=== PATIENT | male | born 2000 ===

== ENCOUNTER 2025-08-08 06:00 | Emergency (ER) | payer SELFPAY ==
[2025-08-08 06:20] VITALS: BP 135/83; PULSE 71; RESP 20; TEMP 35.3
--- NOTE | 2025-08-08 06:33 | ED.OVERDOSE ---
HPI - Overdose General Chief Complaint: Overdose <Manjeet Gandhi MD - Last Filed: 08/08/25 06:41> Stated Complaint: overdose <Manjeet Gandhi MD - Last Filed: 08/08/25 06:41> Time Seen by Provider: 08/08/25 06:27 <Manjeet Gandhi MD - Last Filed: 08/08/25 06:41> Source: patient and EMS <Manjeet Gandhi MD - Last Filed: 08/08/25 06:41> Mode of arrival: EMS <Manjeet Gandhi MD - Last Filed: 08/08/25 06:41> Limitations: clinical condition <Manjeet Gandhi MD - Last Filed: 08/08/25 06:41> History of Present Illness HPI Narrative: This is a 24-year-old male that was found outdoors in the snow apparently by police without his pants was not responding appropriately and received Narcan and subsequently EMS was called to the scene and brought to our facility. Patient is awake alert was somewhat confused but knows the his location knows the date. The patient is shivering from cold otherwise is currently on cooperative with medical care stating an ?give me a second. Currently denies any chest pain or shortness of breath the patient has no nausea vomiting no abdominal pain. EMS of vitals prior to arrival temperature was 97.2? blood pressure 139/77. Patient with mild cough with no shortness of breath. 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 <Manjeet Gandhi MD - Last Filed: 08/08/25 06:41> MD complaint: intentional overdose <Manjeet Gandhi MD - Last Filed: 08/08/25 06:41> Onset (ago): hour(s) <Manjeet Gandhi MD - Last Filed: 08/08/25 06:41> Intent: unknown <Manjeet Gandhi MD - Last Filed: 08/08/25 06:41> Associated symptoms: paranoia <Manjeet Gandhi MD - Last Filed: 08/08/25 06:41> Related Data Home Medications: Home Medications ?Medication ?Instructions ?Recorded ?Confirmed ?Last Taken ?Type Unable to Obtain Home Medications 08/08/25 08/08/25 Unknown History <Manjeet Gandhi MD - Last Filed: 08/08/25 06:41> Allergies/Adverse Reactions: Allergies Allergy/AdvReac Type Severity Reaction Status Date / Time Penicillins Allergy Unknown Unknown Verified 08/08/25 06:27 <Manjeet Gandhi MD - Last Filed: 08/08/25 06:41> Review of Systems Review of Systems: All systems reviewed & are unremarkable except as noted in HPI and below <Manjeet Gandhi MD - Last Filed: 08/08/25 06:41> PMFSH Social History Social History: Social History Substance use type: unknown <Manjeet Gandhi MD - Last Filed: 08/08/25 06:41> Exam Const: General: no acute distress <Manjeet Gandhi MD - Last Filed: 08/08/25 06:41> Nutritional Appearance: well nourished <Manjeet Gandhi MD - Last Filed: 08/08/25 06:41> Limitations: altered mental status <Manjeet Gandhi MD - Last Filed: 08/08/25 06:41> HENMT: Head: normal to inspection <Manjeet Gandhi MD - Last Filed: 08/08/25 06:41> Eyes: Pupils: Equal, round and reactive pupils present <Manjeet Gandhi MD - Last Filed: 08/08/25 06:41> Neck: Neck: normal visual inspection <Manjeet Gandhi MD - Last Filed: 08/08/25 06:41> Chest: Chest palpation & inspection: normal inspection of the chest <Manjeet Gandhi MD - Last Filed: 08/08/25 06:41> Resp: Effort & Inspection: normal respiratory effort <Manjeet Gandhi MD - Last Filed: 08/08/25 06:41> Auscultation: clear to auscultation bilaterally <Manjeet Gandhi MD - Last Filed: 08/08/25 06:41> Cardio: Rate: regular rate <MD Meri Cao Last Filed: 08/08/25 06:41> Rhythm: regular rhythm <Manjeet Gandhi MD - Last Filed: 08/08/25 06:41> GI: GI Palp: Yes Soft to palpation <MD Meri Cao Last Filed: 08/08/25 06:41> Auscultation: normal bowel sounds <MD Meri Cao Last Filed: 08/08/25 06:41> : General: Yes bladder normal to palpation <Manjeet Gandhi MD - Last Filed: 08/08/25 06:41> Skin: Other: Cold extremities <Manjeet Gandhi MD - Last Filed: 08/08/25 06:41> Neuro: General: moves all extremities, no meningeal signs and no focal motor deficits <Manjeet Gandhi MD - Last Filed: 08/08/25 06:41> Speech: normal speech <MD Meri Cao Last Filed: 08/08/25 06:41> Extrem: Other: Cold extremities <MD Meri Cao Last Filed: 08/08/25 06:41> Psych: Affect: Anxious affect present <MD Meri Coa Last Filed: 08/08/25 06:41> Course Course Emergency Course: Medical decision making narrative: The patient was evaluated by myself in the emergency department. History obtained from EMS and patient and physical exam performed witnessed by a nurse and tech and EMS were at the bedside. <Manjeet Gandhi MD - Last Filed: 08/08/25 06:41> Vital Signs Vital signs: Vital Signs Temperature 35.3 C L 08/08/25 06:20 Pulse Rate 71 08/08/25 06:20 Respiratory Rate 20 08/08/25 06:20 Blood Pressure 135/83 08/08/25 06:20 Temperature 35.3 C L 08/08/25 06:20 Pulse Rate 71 08/08/25 06:20 Respiratory Rate 20 08/08/25 06:20 Blood Pressure 135/83 08/08/25 06:20 <MD Meri Cao Last Filed: 08/08/25 06:41> Vital Signs Temperature 35.3 C L 08/08/25 06:20 Pulse Rate 71 08/08/25 06:20 Respiratory Rate 20 08/08/25 06:20 Blood Pressure 135/83 08/08/25 06:20 Temperature 35.3 C L 08/08/25 06:20 Pulse Rate 71 08/08/25 06:20 Respiratory Rate 20 08/08/25 06:20 Blood Pressure 135/83 08/08/25 06:20 <Jose Okeefe MD - Last Filed: 08/08/25 08:25> [facility] Narrative Medical decision making narrative: I took over care of this patient at shift change at 7:00 a.m. and patient kept pawning off discussions and wanted to just take rest. Patient has been polite and without acute episodes or events of psychiatry. He is AAO x4. No suicide ideation. No homicide ideation. He still does not want any laboratory or studies done at this time. He said he just wants to stay in doors and sleep today. I discussed that we and not a long term and unable to house him all day especially if he does not want to do any medical treatment. I discussed AMA at this time with the patient and he understands that there could be life-threatening or abnormal laboratory studies that could be dangerous from him being out in the cold but at this time he is up walking around talking normally and being polite and AAO x4. No suicide thoughts. We cannot hold him against his will and at this time he did not want any medical care. Patient does not have any psychosis at this time or active mental illness or medical illness that I can tell at bedside currently with normal vital signs as well to help make that decision and he does appear to have the decision making capacity ability to say AMA. I offered the patient food and drinks but he has declined. We are going to get him some warm clothes to make sure that he does not freeze outside. He was going to be walking from here to his town [place] so we will make sure that he has warm clothes. <Jose Okeefe MD - Last Filed: 08/08/25 08:25> Differential Diagnosis Differential Diagnosis: overdose, hypothermia <Jose Okeefe MD - Last Filed: 08/08/25 08:25> Critical Care Time Critical Care Time Critical Care Time: No <Manjeet Gandhi MD - Last Filed: 08/08/25 06:41> Discharge Plan Discharge Clinical Impression: Drug overdose Qualifiers: Encounter type: initial encounter Injury intent: accidental or unintentional Qualified Code(s): T50.901A - Poisoning by unspecified drugs, medicaments and biological substances, accidental (unintentional), initial encounter <Manjeet Gandhi MD - Last Filed: 08/08/25 06:41> Patient Disposition: Left Against Medical Advice <Manjeet Gandhi MD - Last Filed: 08/08/25 06:41> Condition: Stable <Manjeet Gandhi MD - Last Filed: 08/08/25 06:41> Patient Language: [place] <Manjeet Gandhi MD - Last Filed: 08/08/25 06:41> Prescriptions: No Action Unable to Obtain Home Medications <Manjeet Gandhi MD - Last Filed: 08/08/25 06:41> Follow-up/Referrals: UNKNOWN,DOCTOR [Primary Care Provider] <Manjeet Gandhi MD - Last Filed: 08/08/25 06:41> Time of Disposition: 07:35 <Manjeet Gandhi MD - Last Filed: 08/08/25 06:41> 07:35 <Jose Okeefe MD - Last Filed: 08/08/25 08:25>
--- NOTE | 2025-08-08 06:57 | PC.NURSE ---
ERP in to speak w/ pt and evaluate pt and he refuses the labs and orders. Pt is currently keeping the bear hugger on and contiues to deny wanting treatment. He keeps stating I need a sceond. Report given to Nelia.
--- NOTE | 2025-08-08 07:36 | PC.NURSE ---
pt a/ox4 and no SI thoughts pt refusing labs and IV morning dr and nurse in room assessing pt pt states he is leaving dry cloths offered and pt accepted
== END 2025-08-08 08:25 | disposition left against medical advice (07) ==
PROVIDERS: Emergency Provider Emergency Medicine
DX: T40.1X1A Poisoning by heroin, accidental (unintentional), initial encounter (principal); T43.651A Poisoning by methamphetamines accidental (unintentional), initial encounter; T40.411A Poisoning by fentanyl or fentanyl analogs, accidental (unintentional), initial encounter
CPT/HCPCS: 99281